=== PATIENT | female | born 1980 | race Caucasian/White ===

== ENCOUNTER 2018-04-24 08:02 | Inpatient (IN) | payer BC ==
[2018-04-24 09:43] LABS: ADD MAN DIFF? NO
[2018-04-24] MEDS: ONDANSETRON 4 MG INJ IV ×3 (09:43→22:46)
[2018-04-24] MEDS: HYDROmorphONE 1 MG/ML SYG IV (09:44)
[2018-04-24 09:49] LABS: BASOPHILS % 0.3 % (0.0-2.0); EOSINOPHILS # 0.4 10^3/ul (0.0-0.5); EOSINOPHILS % 6.4 % (0.0-7.0); HEMATOCRIT 36.2 % (37.0-47.0); LYMPHOCYTES # 1.1 10^3/ul (0.8-2.9); LYMPHOCYTES % 16.7 % (15.0-51.0); MEAN CORPUSCULAR HEMOGLOBIN 32.4 pg (29.0-33.0); MEAN CORPUSCULAR HGB CONC 33.1 g/dl (32.0-37.0); MEAN CORPUSCULAR VOLUME 97.8 fl (82.0-101.0); MEAN PLATELET VOLUME 9.1 fl (7.4-10.4); MONOCYTE # 0.6 10^3/ul (0.3-0.9); MONOCYTES % 8.5 % (0.0-11.0); NEUTROPHIL # 4.5 10^3/ul (1.6-7.5); NEUTROPHILS % 67.5 % (39.0-77.0); PLATELET COUNT 299 10^3/UL (140-415); RED CELL DISTRIBUTION WIDTH 11.7 % (11.5-14.5)
[2018-04-24 09:49] LABS: WHITE BLOOD COUNT 6.7 10^3/ul (4.8-10.8)
[2018-04-24 10:04] LABS: ALANINE AMINOTRANSFERASE 49 IU/L (13-69); ALBUMIN 3.9 g/dl (3.3-4.9); ALBUMIN/GLOBULIN RATIO 1.18; ALKALINE PHOSPHATASE 181 IU/L (42-121); ANION GAP 11 (5-13); ASPARTATE AMINO TRANSFERASE 41 IU/L (15-46); BILIRUBIN,INDIRECT 0.7 mg/dl (0-1.1); BILIRUBIN,TOTAL 0.7 mg/dl (0.2-1.3); BLOOD UREA NITROGEN 8 mg/dl (7-20); CALCIUM 9.3 mg/dl (8.4-10.2); CARBON DIOXIDE 31 mmol/L (21-31); CHLORIDE 101 mmol/L (97-110); CREATININE 0.44 mg/dl (0.44-1.00); Estimated GFR > 60 mL/min (>60); GLUCOSE 97 mg/dl (70-220); LIPASE 123 U/L (23-300); POTASSIUM 4.2 mmol/L (3.5-5.1); SODIUM 143 mmol/L (135-144); TOTAL PROTEIN 7.2 g/dl (6.1-8.1)
[2018-04-24] MEDS ORDERED: SOD CHLORIDE 0.9% 1,000 ML IV (12:03)
[2018-04-24] MEDS: ERTAPENEM SODIUM 1 GM in SOD CHLORIDE 0.9% 100 ML IVPB (12:06)
[2018-04-24] MEDS ORDERED: ACETAMINOPHEN 325 MG TAB PO (12:30)
[2018-04-24] MEDS: morphine 2 MG INJ IV ×3 (13:24→22:43)
[2018-04-24] MEDS: DEXTROSE 5%-0.45% NACL 1,000 ML IV ×2 (13:24→22:30)
[2018-04-24] MEDS: PIPER-TAZO 3.375 GM IV (PMX) 100 ML IVPB ×2 (15:07→22:47)
[2018-04-24] MEDS ORDERED: HYDROmorphONE 1 MG/5 ML IV SYRINGE IV ×2 (19:00)
[2018-04-24] MEDS ORDERED: OXYCODONE/ACETAMINOPHEN (5/325) TAB PO ×2 (19:00→21:00)
[2018-04-24] MEDS ORDERED: FENTAnyl 50 MCG/ML VIAL IV ×3 (19:00)
[2018-04-24] MEDS ORDERED: MEPERIDINE 25 MG INJ IV (19:00)
[2018-04-24] MEDS ORDERED: PROCHLORPERAZINE 10 MG INJ IV (19:00)
[2018-04-24] MEDS ORDERED: DIPHENHYDRAMINE 50 MG INJ IV (19:00)
[2018-04-24] MEDS ORDERED: ONDANSETRON 4 MG INJ IV (19:00)
[2018-04-24] MEDS ORDERED: MIDAZOLAM 1 MG/ML 2 ML INJ (19:10)
[2018-04-24] MEDS ORDERED: ROPIVACAINE 0.5 % 30 ML VIAL (19:12)
[2018-04-24] MEDS ORDERED: FENTAnyl 50 MCG/ML VIAL (19:12)
[2018-04-24] MEDS ORDERED: ONDANSETRON 4 MG INJ (19:36)
[2018-04-24] MEDS ORDERED: PROPOFOL 20 ML (19:36)
[2018-04-24] MEDS ORDERED: SUCCINYLCHOLINE CHLORIDE 100 MG/5 ML SYG IV (19:36)
[2018-04-24] MEDS ORDERED: LIDOCAINE 2% (SDV) 5 ML INJ (19:36)
[2018-04-24] MEDS ORDERED: DEXAMETHASONE 4 MG/ML 1 ML INJ (19:36)
[2018-04-24] MEDS ORDERED: CEFAZOLIN 1 GM INJ (19:36)
[2018-04-24] MEDS ORDERED: FAMOTIDINE 20 MG INJ (19:36)
[2018-04-24] MEDS ORDERED: ROCURONIUM 50 MG INJ (19:36)
[2018-04-24] MEDS ORDERED: HYDROmorphONE 2 MG/ML SYG (19:38)
[2018-04-24] MEDS ORDERED: NEOSTIGMINE 3 MG/3 ML SYRINGE (20:19)
[2018-04-24] MEDS ORDERED: GLYCOPYRROLATE 0.4 MG INJ (20:19)
[2018-04-24] MEDS: BUPIVACAINE 0.25%/EPI (SDV) 10 ML INJ ×2 (20:30→20:31)
[2018-04-24] MEDS: BUPIVACAINE 0.25%/EPI (SDV) 10 ML INJ INJ (20:31)
[2018-04-24] MEDS ORDERED: morphine 2 MG INJ IV (21:00)
[2018-04-24] MEDS: HYDROmorphONE 1 MG/5 ML IV SYRINGE IV (21:26)
[2018-04-24] MEDS: DOCUSATE SODIUM 100 MG CAP PO (22:44)
[2018-04-25] MEDS: morphine 2 MG INJ IV ×3 (01:51→21:05)
[2018-04-25] MEDS: OXYCODONE/ACETAMINOPHEN (5/325) TAB PO ×5 (01:57→19:03)
[2018-04-25] MEDS: DEXTROSE 5%-0.45% NACL 1,000 ML IV ×2 (01:58→19:05)
[2018-04-25 05:20] LABS: ADD MAN DIFF? NO; BASOPHILS % 0.1 % (0.0-2.0); HEMOGLOBIN 11.1 g/dl (12.0-16.0); LYMPHOCYTES # 0.7 10^3/ul (0.8-2.9); LYMPHOCYTES % 9.5 % (15.0-51.0); MEAN CORPUSCULAR HEMOGLOBIN 32.6 pg (29.0-33.0); MEAN CORPUSCULAR HGB CONC 33.6 g/dl (32.0-37.0); MEAN CORPUSCULAR VOLUME 97.1 fl (82.0-101.0); MEAN PLATELET VOLUME 9.4 fl (7.4-10.4); MONOCYTE # 0.3 10^3/ul (0.3-0.9); MONOCYTES % 4.5 % (0.0-11.0); NEUTROPHIL # 5.8 10^3/ul (1.6-7.5); NEUTROPHILS % 85.5 % (39.0-77.0); PLATELET COUNT 312 10^3/UL (140-415); RED CELL DISTRIBUTION WIDTH 11.6 % (11.5-14.5)
[2018-04-25 05:20] LABS: WHITE BLOOD COUNT 6.8 10^3/ul (4.8-10.8)
[2018-04-25 06:13] LABS: ALANINE AMINOTRANSFERASE 81 IU/L (13-69); ALBUMIN 3.3 g/dl (3.3-4.9); ALBUMIN/GLOBULIN RATIO 1.13; ALKALINE PHOSPHATASE 206 IU/L (42-121); ANION GAP 9 (5-13); ASPARTATE AMINO TRANSFERASE 85 IU/L (15-46); BILIRUBIN,INDIRECT 0.6 mg/dl (0-1.1); BILIRUBIN,TOTAL 0.6 mg/dl (0.2-1.3); BLOOD UREA NITROGEN 5 mg/dl (7-20); CALCIUM 8.7 mg/dl (8.4-10.2); CARBON DIOXIDE 28 mmol/L (21-31); CHLORIDE 104 mmol/L (97-110); CREATININE 0.52 mg/dl (0.44-1.00); Estimated GFR > 60 mL/min (>60); GLUCOSE 166 mg/dl (70-220); POTASSIUM 4.4 mmol/L (3.5-5.1); SODIUM 141 mmol/L (135-144); TOTAL PROTEIN 6.2 g/dl (6.1-8.1)
[2018-04-25] MEDS: PIPER-TAZO 3.375 GM IV (PMX) 100 ML IVPB ×3 (06:35→21:04)
[2018-04-25] MEDS: ONDANSETRON 4 MG INJ IV (06:36)
[2018-04-25] MEDS: DOCUSATE SODIUM 100 MG CAP PO ×2 (08:31→21:04)
[2018-04-25] MEDS: FAMOTIDINE 20 MG TAB PO (08:31)
[2018-04-26] MEDS: morphine 2 MG INJ IV (02:03)
[2018-04-26 05:56] LABS: ADD MAN DIFF? NO
[2018-04-26 05:57] LABS: BASOPHILS % 0.4 % (0.0-2.0); EOSINOPHILS # 0.2 10^3/ul (0.0-0.5); EOSINOPHILS % 2.9 % (0.0-7.0); HEMATOCRIT 31.9 % (37.0-47.0); HEMOGLOBIN 10.4 g/dl (12.0-16.0); LYMPHOCYTES # 1.5 10^3/ul (0.8-2.9); LYMPHOCYTES % 21.1 % (15.0-51.0); MEAN CORPUSCULAR HEMOGLOBIN 32.2 pg (29.0-33.0); MEAN CORPUSCULAR HGB CONC 32.6 g/dl (32.0-37.0); MEAN CORPUSCULAR VOLUME 98.8 fl (82.0-101.0); MEAN PLATELET VOLUME 9.3 fl (7.4-10.4); MONOCYTE # 0.6 10^3/ul (0.3-0.9); NEUTROPHIL # 4.6 10^3/ul (1.6-7.5); NEUTROPHILS % 66.2 % (39.0-77.0); PLATELET COUNT 300 10^3/UL (140-415); RED BLOOD COUNT 3.23 10^6/ul (4.20-5.40); RED CELL DISTRIBUTION WIDTH 11.9 % (11.5-14.5)
[2018-04-26] MEDS: PIPER-TAZO 3.375 GM IV (PMX) 100 ML IVPB (06:22)
[2018-04-26] MEDS: OXYCODONE/ACETAMINOPHEN (5/325) TAB PO ×2 (06:27→10:39)
[2018-04-26 06:48] LABS: ALANINE AMINOTRANSFERASE 94 IU/L (13-69); ALBUMIN 3.2 g/dl (3.3-4.9); ALKALINE PHOSPHATASE 198 IU/L (42-121); ANION GAP 8 (5-13); ASPARTATE AMINO TRANSFERASE 72 IU/L (15-46); BILIRUBIN,INDIRECT 0.5 mg/dl (0-1.1); BILIRUBIN,TOTAL 0.5 mg/dl (0.2-1.3); BLOOD UREA NITROGEN 8 mg/dl (7-20); CALCIUM 8.4 mg/dl (8.4-10.2); CARBON DIOXIDE 30 mmol/L (21-31); CHLORIDE 105 mmol/L (97-110); CREATININE 0.57 mg/dl (0.44-1.00); Estimated GFR > 60 mL/min (>60); GLUCOSE 91 mg/dl (70-220); MAGNESIUM 2.1 mg/dl (1.7-2.5); POTASSIUM 4.3 mmol/L (3.5-5.1); SODIUM 143 mmol/L (135-144); TOTAL PROTEIN 6.1 g/dl (6.1-8.1)
[2018-04-26] MEDS: DOCUSATE SODIUM 100 MG CAP PO (09:14)
[2018-04-26] MEDS: FAMOTIDINE 20 MG TAB PO (09:14)
== END 2018-04-26 11:15 | disposition home or self-care (01) | DRG 419 ==
LOC: E/R 08:02 → 2NE 12:03
PROC: 0FT44ZZ Resection of Gallbladder, Percutaneous Endoscopic Approach (ICD-10-PCS; principal; 2018-04-24 19:10)
DX: K81.0 Acute cholecystitis (principal); F17.200 Nicotine dependence, unspecified, uncomplicated; R74.0 Nonspecific elevation of levels of transaminase and lactic acid dehydrogenase [LDH]; E66.9 Obesity, unspecified; Z68.31 Body mass index [BMI] 31.0-31.9, adult
CPT/HCPCS: 36415; 76705; 80053; 83690; 83735; 84703; 85025; 88304; 96374; 96375; 99285-25

== ENCOUNTER 2018-05-07 10:39 | Emergency (ER) | payer MEDICAID, BC | END 2018-05-07 14:38 | disposition home or self-care (01) | LOC: FTE 14:38 | DX: L90.5 Scar conditions and fibrosis of skin (principal); Z48.01 Encounter for change or removal of surgical wound dressing; Z87.891 Personal history of nicotine dependence | CPT/HCPCS: 99283; Z7502 ==